=== PATIENT | female | born 1970 | race Caucasian/White ===

== ENCOUNTER 2020-08-18 11:09 | Outpatient (CLI) | payer BC, SELFPAY ==
[2020-08-20 13:16] LABS: Patient Race White; SARS-CoV-2 RNA Undetected (Undetected); SARS-CoV-2 Specimen Source Nasopharynx
== END 2020-08-18 11:29 ==
PROVIDERS: Visit Provider Physician Assistant
DX: Z20.828 Contact with and (suspected) exposure to other viral communicable diseases (principal)
CPT/HCPCS: U0003

== ENCOUNTER 2025-08-26 11:03 | Outpatient (CLI) | payer BC, SELFPAY ==
[2025-08-26 11:46] LABS: Abs Immature Grans 0.04 10^3/uL (0.0-0.06); HCT 37.5 % (36.0-46.0); HGB 12.3 g/dL (11.2-15.7); Immature Grans % 0.4 %; MCH 31.5 pg (27.0-33.0); MCHC 32.8 % (32.0-36.0); MCV 96 fL (80-95); MPV 8.3 fL (8.0-11.0); Platelet Count 360 10^3/uL (130-400); RBC 3.90 10^6/uL (3.93-5.22); RDW 12.7 % (11.7-14.6); RDW-SD 45.1 fL; WBC 10.68 10^3/uL (4.4-10.8)
[2025-08-26 11:47] LABS: ESR 6 mm/hr (0-30)
[2025-08-26 12:23] LABS: Iron 57 ug/dL (50-170); Total Iron Binding Capacity 251 ug/dL (250-450); Transferrin Sat 23 % (15-50)
[2025-08-26 12:55] LABS: ALT 19 U/L (14-59); AST 8 U/L (15-37); Albumin 3.9 g/dL (3.4-5.0); Alkaline Phosphatase 74 U/L (46-116); Anion Gap 6.1 mmol/L (3-11); BUN 13 mg/dL (7-18); Bilirubin, Total 0.3 mg/dL (0.2-1.0); CO2 33.9 mmol/L (21.0-32.0); Calcium 9.1 mg/dL (8.5-10.1); Calculated LDL 107 mg/dL (<100); Chloride 92 mmol/L (98-107); Cholesterol 249 mg/dL (<200); Estimated GFR 66.12 (mL/min/1.73m2); Ferritin 125 ng/mL (8-252); Folate 14.6 ng/mL (8.6-20.0); Glucose 115 mg/dL (74-106); HDL Cholesterol 128 mg/dL (>or=50); Potassium 4.4 mmol/L (3.5-5.1); Sodium 132 mmol/L (136-145); Total Protein 7.2 g/dL (6.4-8.2); Triglyceride 73 mg/dL (<150); Vitamin B12 698 pg/mL (193-986)
[2025-08-26 13:11] LABS: C-Reactive Protein 0.72 mg/dL (<or=0.5)
== END 2025-08-26 11:04 | disposition home or self-care (01) ==
LOC: LBO 11:06
PROVIDERS: PCP Student in an Organized Health Care Education/Training Program; Visit Provider Internal Medicine Rheumatology
DX: D64.9 Anemia, unspecified (principal); M31.6 Other giant cell arteritis; M35.00 Sjogren syndrome, unspecified
CPT/HCPCS: 36415; 80053; 80061; 85652; 82607; 82728; 82746; 83540; 83550; 85025; 86140